=== PATIENT | female | born 1980 | race Caucasian/White ===

== ENCOUNTER 2017-04-04 21:38 | Emergency (ER) | payer MEDICAID ==
[2017-04-04 21:50] VITALS: RESP 16; TEMP 98.8; O2SAT 96
--- NOTE | 2017-04-04 22:24 | EDPHY ---
H & P Stated Complaint: cramping/vag bleeding Time Seen by Provider: 04/04/17 22:01 HPI/ROS: HPI The patient presents with vaginal discharge and bleeding which has been present since [facility] 02 [facility] . She was 10 weeks at the time. Since then she has had intermittent bloody discharge which last for a few days at a time and then improves for a few days. She was checked for sexually transmitted infections, however her testing was negative. She was most recently seen in emergency room in [place] and there she had testing performed including a pelvic ultrasound which demonstrated with eyelid is slightly thickened endometrial stripe suggestive of possible retained products of conception. She was told to follow up with OBGYN but has had some difficulty making contacted due to her insurance and need for referral from primary care which she does not have. She feels frustrated and was talking to her family that recommend that she come into the emergency department. REVIEW OF SYSTEMS Constitutional: No fever, no chills. Eyes: No discharge. ENT: No sore throat. Cardiovascular: No chest pain, no palpitations. Respiratory: No cough, no shortness of breath. Gastrointestinal: No abdominal pain, no vomiting. Genitourinary: No hematuria. Musculoskeletal: No back pain. Skin: No rashes. Neurological: No headache. PMHx: Healthy Soc Hx: Lives in [place], family in [place] FHx: PHYSICAL General Appearance: Alert, no distress Eyes: Pupils equal and round no pallor or injection ENT, Mouth: Mucous membranes moist Respiratory: There are no retractions, lungs are clear to auscultation Cardiovascular: Regular rate and rhythm Gastrointestinal: Abdomen is soft and non-tender, no masses, bowel sounds normal Pelvic: Normal appearing vaginal vault and cervix, small amount of pink discharge Neurological: A&O, moves all extremities Skin: Warm and dry, no rashes Musculoskeletal: Neck is supple non tender Extremities: symmetrical, full range of motion Psychiatric: Patient is oriented X 3, there is no agitation Source: Patient Exam Limitations: No limitations - Personal History LMP (Females 10-55): Unknown Current Tetanus/Diphtheria Vaccine: Unsure Current Tetanus Diphtheria and Acellular Pertussis (TDAP): Unsure - Medical/Surgical History Hx Asthma: No Hx Chronic Respiratory Disease: No Hx Diabetes: No Hx Cardiac Disease: No Hx Renal Disease: No Hx Cirrhosis: No Hx Alcoholism: No Hx HIV/AIDS: No Hx Splenectomy or Spleen Trauma: No Other PMH: R shoulder surgery, PNA, - Social History Smoking Status: Never smoked Constitutional: Initial Vital Signs Temperature (C) 37.1 C 04/04/17 21:48 Heart Rate 91 04/04/17 21:48 Respiratory Rate 16 04/04/17 21:48 Blood Pressure 138/83 H 04/04/17 21:48 O2 Sat (%) 96 04/04/17 21:48 O2 Delivery Mode Room Air Allergies/Adverse Reactions: amoxicillin Allergy (Verified 04/04/17 21:47) metoclopramide [From Reglan] Allergy (Verified 04/04/17 21:47) NSAIDS (Non-Steroidal Anti-Inflamma Allergy (Verified 04/04/17 21:47) Sulfa (Sulfonamide Antibiotics) Allergy (Verified 04/04/17 21:47) Home Medications: Medication Instructions Recorded Metronidazole 500 mg PO BID #14 tablet 04/04/17 Medical Decision Making Differential Diagnosis: 36-year-old female who presents with several weeks of bloody vaginal discharge, now becoming malodorous. On February 02, was 10 weeks and [facility] she has had the discharge ever since. Ultrasound from March 24 reveals root likely retained products of conception. I anticipate she will need a D and C, however this is not emergent. In the emergency department, pelvic exam was performed, testing for bacterial vaginosis and Trichomonas performed. Given malodorous discharge, I will presumptively treat for bacterial vaginosis. I referred [facility] for primary care in OBGYN referral. I have made a case management referral as well. - Data Points Laboratory Results: 04/04/17 23:00 Dasia species DNA Pending Gardnerella DNA Probe Pending Trichomonas DNA Probe Pending Medications Given: Discontinued Medications Metronidazole (Flagyl) 500 mg PO EDNOW ONE PRN Reason: Protocol Stop: 04/04/17 22:54 Last Admin: 04/04/17 23:49 Dose: 500 mg Departure - Departure Disposition: Home, Routine, Self-Care Clinical Impression: Vaginal discharge Condition: Good Instructions: Vaginal Discharge (ED) Referrals: [facility],. [Clinic] - As per Instructions Prescriptions: Metronidazole 500 mg PO BID #14 tablet
[2017-04-04] MEDS ORDERED: metroNIDAZOLE 500 MG TAB PO ONE (22:53)
[2017-04-04 23:54] VITALS: BP 121/88; PULSE 76
== END 2017-04-04 23:49 | disposition home or self-care (01) ==
DX: N89.8 Other specified noninflammatory disorders of vagina (principal)

== ENCOUNTER 2017-04-11 20:36 | Emergency (ER) | payer MEDICAID ==
[2017-04-11] MEDS ORDERED: NS 1,000 ML IV ONE (22:07)
[2017-04-11] MEDS ORDERED: DEXAMETHASONE 10 MG/ML VIAL IVP ONE (22:08)
[2017-04-11] MEDS ORDERED: KETOROLAC 30 MG/1 ML SDV IVP ONE (23:01)
--- NOTE | 2017-04-11 23:01 | EDPHY ---
H & P Time Seen by Provider: 04/11/17 21:40 HPI/ROS: CHIEF COMPLAINT: Headache HISTORY OF PRESENT ILLNESS: 36-year-old female presents emergency department with headache for the last few days. The patient was seen in the emergency department 5 days ago and was diagnosed with Gardnerella. She was started on metronidazole. She has been taking this as prescribed for the last 5 days. She states even after the 1st single dose of the antibiotic, she developed frontal headache. She does not have a history of headaches. No reported trauma. She felt slightly dizzy and nauseous. No vomiting. No neck pain. She is concerned that this is a side effect of the medication. She denies chest pain or difficulty breathing. Denies fevers or chills. No other complaints. REVIEW OF SYSTEMS: Constitutional: No fever, no chills. Eyes: Photophobia. No double or blurry vision. ENT: No sore throat. Respiratory: No cough, no shortness of breath. Cardiac: No chest pain. Gastrointestinal: No abdominal pain, vomiting or diarrhea. Genitourinary: No dysuria. Musculoskeletal: No neck or back pain. Skin: No rashes. Neurological: headache. Past Medical/Surgical History: Orthopedic surgery Social History: Single and lives in [place] Smoking Status: Never smoked Physical Exam: General Appearance: Alert, no distress. Mentating normally and answering questions appropriately. No nuchal rigidity. Eyes: Pupils equal and round. Extraocular motions are all intact. ENT: Mouth: Mucous membranes moist. Respiratory: No wheezing, rhonchi, or rales, lungs are clear to auscultation. Cardiovascular: Regular rate and rhythm. Gastrointestinal: Abdomen is soft and nontender, no masses, no rebound or guarding, bowel sounds normal. Neurological: Alert and oriented x 3, cranial nerves II through XII grossly intact Skin: Warm and dry, no rashes. Musculoskeletal: Nontender to palpate along the cervical, thoracic or lumbar spine. Neck is supple. Extremities: Full range of motion and no peripheral edema. Psychiatric: Patient is oriented X 3, there is no agitation. Constitutional: Initial Vital Signs Temperature (C) 36.7 C 04/11/17 20:43 Heart Rate 85 04/11/17 20:43 Respiratory Rate 20 04/11/17 20:43 Blood Pressure 128/82 H 04/11/17 20:43 O2 Sat (%) 98 04/11/17 20:43 O2 Delivery Mode Room Air Allergies/Adverse Reactions: amoxicillin Allergy (Verified 04/04/17 21:47) metoclopramide [From Reglan] Allergy (Verified 04/04/17 21:47) NSAIDS (Non-Steroidal Anti-Inflamma Allergy (Verified 04/04/17 21:47) Sulfa (Sulfonamide Antibiotics) Allergy (Verified 04/04/17 21:47) Home Medications: Medication Instructions Recorded Metronidazole 500 mg PO BID #14 tablet 04/04/17 Medical Decision Making - Diagnostics Imaging Results: Imaging Impressions Head CT 04/11/17 21:52 Impression: No acute abnormalities. Dr. Chandler discussed these findings by telephone with TAYO JOSHI on at 2259 hours. Imaging: Discussed imaging studies w/ call center director Radiologist ED Course/Re-evaluation: 36-year-old female presents to the emergency department with headache. The patient is concerned that this is a side effect of the metronidazole that was prescribed for her bacterial vaginosis. Patient also tells me that she has a sister that has a history of brain tumor and she is requesting imaging of her head. I discussed the pros and cons of CT imaging of her brain including radiation exposure the patient requests CT scan. CT imaging of the brain was normal. Patient had an IV established and was given 10 mg of Decadron IV, 1 L of IV normal saline, and 30 mg of Toradol IV. Patient was encouraged to stop the metronidazole as prescribed. Also instructed to return to the emergency department sooner if any change in symptoms or if she felt worse in any way. She was comfortable with this plan. 11:40 p.m.: The patient is feeling much better. She is comfortable being discharged home. Differential Diagnosis: Headache including but not limited to subarachnoid hemorrhage, migraine headache , tension headache and infectious causes such as meningitis, pharyngitis and sinusitis, medication reaction - Data Points Medications Given: Discontinued Medications Dexamethasone (Decadron Injection) 10 mg IVP EDNOW ONE Stop: 04/11/17 22:09 Last Admin: 04/11/17 22:28 Dose: 10 mg Sodium Chloride (Ns) 1,000 mls @ 0 mls/hr IV EDNOW ONE; Wide Open PRN Reason: Protocol Stop: 04/11/17 22:08 Last Admin: 04/11/17 22:28 Dose: 1,000 mls Ketorolac Tromethamine (Toradol) 30 mg IVP EDNOW ONE Stop: 04/11/17 23:02 Last Admin: 04/11/17 23:11 Dose: 30 mg Departure - Departure Disposition: Home, Routine, Self-Care Clinical Impression: Probable medication reaction Headache Qualifiers: Headache type: unspecified Headache chronicity pattern: acute headache Intractability: not intractable Qualified Code(s): R51 - Headache Condition: Good Instructions: Acute Headache (ED), Adverse Drug Reaction (ED) Additional Instructions: You should stop the metronidazole that was prescribed. Return to the emergency department if you have any change in symptoms or if you feel worse in any way. Referrals: [facility] [Other] - 1-2 days without fail
[2017-04-11 23:43] VITALS: BP 113/75; PULSE 66; RESP 16; TEMP 98.2; O2SAT 97
== END 2017-04-11 23:43 | disposition home or self-care (01) ==
DX: R51 Headache (principal); E86.9 Volume depletion, unspecified
CPT/HCPCS: 96374; J1100; J1885